=== PATIENT | male | born 1985 | race Caucasian/White ===

== ENCOUNTER 2016-11-28 20:21 | Emergency (ER) | payer OTHER ==
[2016-11-28 20:38] VITALS: BP 143/88; PULSE 86; RESP 18; TEMP 98.1; O2SAT 95
--- NOTE | 2016-11-28 21:11 | UCPHY ---
H & P Patient Type: New Chief Complaint Nursing Narrative: digging thru dumpster looking for his wedding ring. superficial lacerations to r forearm and tips of his fingers Time Seen by Provider: 11/28/16 21:05 HPI/ROS: CHIEF COMPLAINT: Requesting tetanus shot HISTORY OF PRESENT ILLNESS: The patient is a 31-year-old man who comes to the Urgent Care requesting a tetanus shot. He states that he was digging through a dumpster earlier today looking for lost wedding ring. He has several superficial abrasions to his right forearm. No laceration. He states that it has been greater than 10 years since he had a tetanus shot. REVIEW OF SYSTEMS: Constitutional: denies: chills, fever, recent illness, recent injury EENTM: denies: blurred vision, double vision, nose congestion Respiratory: denies: cough, shortness of breath Cardiac: denies: chest pain, irregular heart rate, lightheadedness, palpitations Gastrointestinal/Abdominal: denies: abdominal pain, diarrhea, nausea, vomiting, blood streaked stools Genitourinary: denies: dysuria, frequency, hematuria, pain Musculoskeletal: denies: joint pain, muscle pain Skin: See HPI Neurological: denies: headache, numbness, paresthesia, tingling, dizziness, weakness Hematologic/Lymphatic: denies: blood clots, easy bleeding, easy bruising Immunologic/allergic: denies: HIV/AIDS, transplant EXAM: GENERAL: Well-appearing, well-nourished and in no acute distress. HEAD: Atraumatic, normocephalic. EYES: Pupils equal round and reactive to light, extraocular movements intact, sclera anicteric, conjunctiva are normal. ENT: TMs normal, nares patent, oropharynx clear without exudates. Moist mucous membranes. NECK: Normal range of motion, supple without lymphadenopathy or JVD. LUNGS: Breath sounds clear to auscultation bilaterally and equal. No wheezes rales or rhonchi. HEART: Regular rate and rhythm without murmurs, rubs or gallops. ABDOMEN: Soft, nontender, normoactive bowel sounds. No guarding, no rebound. No masses appreciated. BACK: No CVA tenderness, no spinal tenderness, step-offs or deformities EXTREMITIES: Normal range of motion, no pitting or edema. No clubbing or cyanosis. NEUROLOGICAL: Cranial nerves II through XII grossly intact. Normal speech, normal gait. 5/5 strength, normal movement in all extremities, normal sensation PSYCH: Normal mood, normal affect. SKIN: Superficial abrasions to right medial forearm. No laceration. No sign of foreign body or infection. Source: Patient Exam Limitations: No limitations - Personal History Current Tetanus/Diphtheria Vaccine: Unsure Current Tetanus Diphtheria and Acellular Pertussis (TDAP): Unsure - Medical/Surgical History Hx Asthma: No Hx Chronic Respiratory Disease: No Hx Diabetes: No Hx Cardiac Disease: No Hx Renal Disease: No Hx Cirrhosis: No Hx Alcoholism: No Hx HIV/AIDS: No Hx Splenectomy or Spleen Trauma: No Other PMH: heart palpitations - Family History Significant Family History: No pertinent family hx - Social History Smoking Status: Never smoked Alcohol Use: None Drug Use: None Constitutional: Initial Vital Signs Temperature (C) 36.7 C 11/28/16 20:33 Heart Rate 86 11/28/16 20:33 Respiratory Rate 18 11/28/16 20:33 Blood Pressure 143/88 H 11/28/16 20:33 O2 Sat (%) 95 11/28/16 20:33 O2 Delivery Mode Room Air Allergies/Adverse Reactions: Penicillins Allergy (Verified 10/10/16 14:10) Home Medications: Medication Instructions Recorded NK [No Known Home Meds] 11/28/16 Medical Decision Making ED Course/Re-evaluation: The patient is here requesting a tetanus booster which we will provide. I do not think that his abrasions she be treated with prophylactic antibiotics possibly selecting for worse bacteria. I encouraged him to keep it clean and covered. He understands and agrees with this plan. Declines further workup or testing at this time. Differential Diagnosis: Partial list of the Differential diagnosis considered include but were not limited to; tetanus vaccine, abrasion and although unlikely based on the history and physical exam, I also considered laceration, foreign body, assault. I discussed these differential diagnoses and the plan with the patient as well as the usual and expected course. The patient understands that the diagnosis is provisional and that in medicine we are not always correct and that further workup is often warranted. Usual and customary warnings were given. All of the patient's questions were answered. The patient was instructed to return to the emergency department should the symptoms at all worsen or return, otherwise to followup with the physician as we discussed. - Data Points Medications Given: Discontinued Medications Diphtheria/Tetanus/Acell Pertussis (Boostrix) 0.5 ml IM .ONCE ONE Stop: 11/28/16 21:18 Last Admin: 11/28/16 21:25 Dose: 0.5 ml Departure - Departure Disposition: Home, Routine, Self-Care Clinical Impression: Abrasion, Need for tetanus booster Condition: Good Instructions: Abrasion (ED), Diphtheria/Acellular Pertussis/Tetanus Booster Vaccine (By injection) Referrals: YOLA SHAY [Primary Care Provider] - As per Instructions - PQRS PQRS Measurement: Not applicable
[2016-11-28] MEDS ORDERED: TDAP ADULT 0.5 ML INJ (BOOSTRIX) IM ONE (21:17)
== END 2016-11-28 21:26 | disposition home or self-care (01) ==
LOC: CED 20:21
DX: S50.811A Abrasion of right forearm, initial encounter (principal); Z23 Encounter for immunization
CPT/HCPCS: G0463-PO